=== PATIENT | male | born 1935 | race Caucasian/White ===

== ENCOUNTER → 2016-03-27 | Outpatient (CLI) | payer OTHER ==
[~2016-03-27] MED LIST: ACET-1256 PO; ACET-24 PO; ASPCH81X PO; ASPEC325 PO; ASPI400T11 PO; CETI10TA10 PO; CITA10TA8 PO; DICL1GEL12 TOP; DILT240C57 PO; FINA5TAB PO; GABA-113 PO; LISI20TA55 PO; LISINOPRIL/HCTZ PO; LUTE6CAP9 PO; MULT-506 PO; OMEG10007 PO; TAMS0.4C59 PO; ULT50X PO
== END | disposition home or self-care (01) ==
LOC: C.RDSM 08:00
PROVIDERS: ATTEND Physical Medicine & Rehabilitation Sports Medicine
DX: M25.512 Pain in left shoulder (principal)

== ENCOUNTER → 2016-04-06 | Outpatient (CLI) | payer OTHER ==
--- NOTE | 2016-04-06 09:28 | DIAGNOSTIC IMAGING REPORT ---
MRI LUMBAR SPINE W/O CONTRAST CLINICAL HISTORY: Spinal stenosis. Persistent low back pain. TECHNIQUE: Sagittal and axial T1, T2 and STIR images were obtained. COMPARISON STUDY: May 27, 2015 OBSERVATIONS: There is mild heterogeneity in the marrow signal, finding consistent with age-related marrow conversion and degenerative endplate signal changes. L1-2: There is a mild circumferential disc bulge. There is no evidence of significant spinal or foraminal stenosis. L2-3: There is a mild circumferential disc bulge present. There is left-sided foraminal narrowing. There is no significant spinal stenosis. There is left-sided facet joint arthropathy. L3-4: There is a circumferential disc bulge present, as well as a left lateral disc protrusion. There is left-sided foraminal stenosis. There is facet joint arthropathy. There is no significant spinal stenosis. L4-5: There is a circumferential disc bulge present. There is bilateral foraminal stenosis. There are postlaminectomy changes. There is facet joint arthropathy. There is no significant spinal stenosis L5-S1: There is cystic degeneration of the disc. There is advanced facet joint arthropathy. There are postlaminectomy changes. There is no significant spinal stenosis. There is bilateral foraminal narrowing. The conus medullaris and cauda equina appear normal. 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 IMPRESSION: 1. Multilevel spondylitic changes 2. Interval posterior laminectomies at the L4 and L5 levels 3. No evidence of significant spinal stenosis 4. Multilevel foraminal stenosis Electronically signed by: Jose Arellano M.D. 04/06/2016 9:27 AM Dictated Date/Time: 04/06/2016 9:20 AM
== END | disposition home or self-care (01) ==
LOC: C.MRIBC 08:17
PROVIDERS: ATTEND Orthopaedic Surgery
DX: M48.06 Spinal stenosis, lumbar region (principal); Z98.1 Arthrodesis status

== ENCOUNTER → 2016-06-24 | Day surgery (SDC) | payer OTHER ==
[2016-06-03 13:41] VITALS: Ht 180.3 cm; Wt 95.5 kg
[~2016-06-24] VITALS: Ht 180.3 cm; Wt 95.5 kg
[~2016-06-24] MED LIST changes: +BUPIVACAINE 0.25% 2.5MG/ML PF 10 ML VIAL INFIL ONE; +IOPAMIDOL INJ 61% 15 ML VIAL ONE; +LIDOCAINE HCL 1% MPF 5 ML VIAL ONE; +SODIUM CHLORIDE 0.9% INJ 10 ML VIAL ONE
--- NOTE | 2016-06-24 14:14 | History & Physical Bridge - SC ---
H&P Re-Evaluation Bridge Note: I have examined the patient, reviewed the History & Physical and in the interval since the performance of the History & Physical I have noted the following changes of clinical significance: No changes noted
[2016-06-24 14:39] VITALS: TEMP 36.6
--- NOTE | 2016-06-24 14:43 | Discharge Instructions ---
Discharge Instructions Date of Service June 24, 2016. Visit Reason for Visit: Lumbar Radiculopathy Discharge Discharge Diagnosis / Problem: right leg pain Discharge Goals Goal(s): Decrease discomfort, Improve function Medications Stopped Medications Name(s): asa stopped x 1 week. Activity Recommendations Activity Limitations: resume your previous activity Anesthesia . Post Anesthesia Instructions: If you have had General Anesthesia or IV Sedation: * Do not drive today. * Resume driving when surgeon permits. * Do not make important decisions or sign legal documents today. * Call surgeon for: 1. Temperature elevations greater than 101 degrees F. 2. Uncontrollable pain. 3. Excessive bleeding. 4. Persistent nausea and vomiting. 5. Medication intolerance (nausea, vomiting or rash). * For nausea and vomiting use only clear liquids such as: tea, soda, bouillon until nausea subsides, then gradually increase diet as tolerated. * If you have any concerns or questions, call your surgeon's office. If physician is unavailable and it is an emergency, call 911 or go to the nearest emergency room. . Diet Recommendations Recommended Home Diet: resume previous diet Procedures Procedures Performed: Right L4-5 Transforaminal Epidural Steroid Injection Pending Studies Studies pending at discharge: no Medical Emergencies . Who to Call and When: Medical Emergencies: If at any time you feel your situation is an emergency, please call 911 immediately. . Non-Emergent Contact Non-Emergency issues call your: Specialist . . "Provider Documentation" section prepared by Ruddy Pedroza. .
[2016-06-24 14:50] VITALS: BP 155/91; PULSE 73; O2SAT 95
--- NOTE | 2016-06-24 15:30 | OPERATIVE REPORT ---
DATE OF OPERATION: 06/24/2016 PREOPERATIVE DIAGNOSIS: History of right L4-L5 hemilaminectomy with persistent right L4 radiculopathy. POSTOPERATIVE DIAGNOSIS: Same. PROCEDURE: Right transforaminal epidural steroid injection under fluoroscopic guidance. SURGEON: Dr. Ruddy Pedroza. INDICATIONS: The patient is an 81-year-old white male who has persistent L4 radiculopathy on the right side despite surgery, presents today for a transforaminal nerve root selective nerve root block to provide him with relief. PHYSICAL EXAMINATION: GENERAL: Pleasant male seated comfortably in no apparent distress. MUSCULOSKELETAL EXAMINATION: He has a well-healed incision. He has no sciatic notch sensitivity. He has normal lower extremity strength and sensation. Negative seated straight leg raises. CONSENT: Verbal and written consent was reviewed with the patient. Risks and benefits were reviewed. Risks include but are not limited to abscess, hematoma, allergic reaction, dural puncture. Wishes to proceed. PROCEDURE: The patient was taken back to the special procedures room of the [facility] where he was maintained in a prone position. Backside was cleansed with Betadine x3 and a dry sterile dressing was applied. Fluoroscope was used to identify the L4-L5 region and then view was placed in an oblique view and the L4 pedicle was then targeted inferior to this with a 25 gauge 5" spinal needle. It was advanced in an oblique view and then moved into an AP view to move it towards the nerve and foramen. It was advanced until the patient and reproduced a painful sensation in the thigh area down the leg. It was retracted a few millimeters until he had no discomfort and then injected with Isovue 300 contrast which showed outline of the nerve root. He then underwent injection after negative aspiration of 40 mg of Depo-Medrol, 2 mL of bupivacaine 0.25% which reproduced a familiar transient radicular sensation down the thigh. DISPOSITION: 1. The patient is taken out into the discharge recovery area where he will be discharged home once discharge criteria have been met. 2. Follow up in the [facility] office in 2-4 weeks. I attest to the content of the Intraoperative Record and any orders documented therein. Any exceptio ns are noted below.
== END | disposition home or self-care (01) ==
LOC: X.SURG 13:45
PROVIDERS: ATTEND Physical Medicine & Rehabilitation
DX: M54.16 Radiculopathy, lumbar region (principal); N40.0 Benign prostatic hyperplasia without lower urinary tract symptoms; I10 Essential (primary) hypertension; M19.019 Primary osteoarthritis, unspecified shoulder; Z79.82 Long term (current) use of aspirin; Z87.891 Personal history of nicotine dependence

== ENCOUNTER → 2016-07-08 | Outpatient (CLI) | payer OTHER ==
[~2016-07-08] MED LIST changes: -BUPIVACAINE 0.25% 2.5MG/ML PF 10 ML VIAL INFIL ONE; -IOPAMIDOL INJ 61% 15 ML VIAL ONE; -LIDOCAINE HCL 1% MPF 5 ML VIAL ONE; -SODIUM CHLORIDE 0.9% INJ 10 ML VIAL ONE
--- NOTE | 2016-07-08 11:47 | DIAGNOSTIC IMAGING REPORT ---
CT OF THE RIGHT HIP CT DOSE: 815.36 mGy.cm HISTORY: Pain M25.551 Acute right hip [id number] Right TECHNIQUE: Multiaxial CT images of the right hip were performed and reformatted in the sagittal and coronal plane without the use of contrast. COMPARISON: None. FINDINGS: Severe degenerative change right hip. [id number] configuration superior aspect of the femoral head and lateral acetabulum. Degenerative subchondral cyst formation. Small joint effusion. Moderate synovial calcification. Calcific trochanteric bursitis. No evidence for acetabular protrusion. No evidence for fracture or dislocation. IMPRESSION: 1. Severe degenerative change. 2. Synovial calcification. 3. Mild calcific trochanteric bursitis. Electronically signed by: Luis Breen M.D. 07/08/2016 11:46 AM Dictated Date/Time: 07/08/2016 11:26 AM
== END | disposition home or self-care (01) ==
LOC: C.CTS 11:07
PROVIDERS: ATTEND Internal Medicine
DX: M25.551 Pain in right hip (principal); M67.851 Other specified disorders of synovium, right hip

== ENCOUNTER 2016-10-08 05:06 | Inpatient (IN) | payer OTHER ==
[2016-09-24 14:19] VITALS: BMI 31.0
--- NOTE | 2016-09-24 14:43 | PAT Medication Instructions ---
Service Date Sep 24, 2016. Current Home Medication List Aspirin (Aspirin Chewable), 81 MG PO QAM Aspirin-Caffeine (Anacin 400-32 mg), 2 TAB PO TID Cetirizine Hcl (Zyrtec), 10 MG PO QAM Citalopram Hydrobromide (Celexa), 20 MG PO QAM Diltiazem Hcl Coated Beads (Cardizem Cd), 240 MG PO QAM Finasteride (Proscar), 5 MG PO QAM Fish Oil (Zwolle-3), 1 CAP PO QAM Gabapentin (Neurontin), 300 MG PO TID Lutein (Cvs Lutein), 12 MG PO Q2D Multivitamin (Multivitamin), 1 TAB PO QAM Tamsulosin Hcl (Flomax), 0.4 MG PO QAM [Lisinopril/Hctz], 1 TAB PO QAM Medication Instructions For Your Scheduled Surgery Aspirin-Caffeine (Anacin 400-32 mg), 2 TAB PO TID (check with surgeon for instructions) - Hold the following medications starting 09/25/16: Fish Oil (Zwolle-3), 1 CAP PO QAM - Hold the following medications the morning of surgery: Lutein (Cvs Lutein), 12 MG PO Q2D Multivitamin (Multivitamin), 1 TAB PO QAM Tamsulosin Hcl (Flomax), 0.4 MG PO QAM [Lisinopril/Hctz], 1 TAB PO QAM Finasteride (Proscar), 5 MG PO QAM Cetirizine Hcl (Zyrtec), 10 MG PO QAM - Take the following medications the morning of surgery with a sip of water: Gabapentin (Neurontin), 300 MG PO TID Diltiazem Hcl Coated Beads (Cardizem Cd), 240 MG PO QAM Citalopram Hydrobromide (Celexa), 20 MG PO QAM Aspirin (Aspirin Chewable), 81 MG PO QAM (okay to continue per surgeon) - Take the following medications as scheduled the night before surgery: Gabapentin (Neurontin), 300 MG PO TID If you have any questions please call us at [phone] or [phone] or [phone]
--- NOTE | 2016-09-24 15:10 | DIAGNOSTIC IMAGING REPORT ---
CHEST 2 VIEWS ROUTINE HISTORY: 81 years-old Male preadmission exam. No acute chest complaints. COMPARISON: Chest CT 01/29/2006. TECHNIQUE: Frontal and lateral views of the chest FINDINGS: Cardiac silhouette is mildly enlarged. There is no pneumothorax, pleural effusion or focal airspace consolidation. There is minimal subsegmental left basilar atelectasis or scarring. No overt pulmonary edema. There is atherosclerosis of the aorta.] Technique limits are noted. Multilevel endplate spurring is seen throughout the thoracic spine. Approximately 30% anterior endplate compression of a mid thoracic segment, likely T7 which is age-indeterminate. IMPRESSION: 1. No acute cardiopulmonary process. 2. 30% anterior endplate compression deformity of a mid thoracic segment, likely T7 is age indeterminate, however appears new from chest CT dated 01/29/2006. The above report was generated using voice recognition software. It may contain grammatical, syntax or spelling errors. Electronically signed by: Osorio Barahona M.D. 09/24/2016 3:08 PM Dictated Date/Time: 09/24/2016 3:05 PM
[2016-09-24 15:27] LABS: BASO % 0.7 %; BASO ABS # 0.04 K/uL (0-0.2); COMPLETE YES; EOS % 6.4 %; HEMATOCRIT 40.3 % (42-52); IG% 0.5 %; LYMPH % 29.1 %; LYMPH ABS # 1.78 K/uL (1.2-3.4); MEAN CELL VOLUME 96.2 fL (80-100); MEAN CORPUSCULAR HEMOGLOBIN 33.9 pg (25-34); MEAN CORPUSCULAR HGB CONC 35.2 g/dl (32-36); MEAN PLATELET VOLUME 10.1 fL (7.4-10.4); MONO % 11.8 %; NEUT % 51.5 %; PLATELET COUNT 230 K/uL (130-400); RED BLOOD COUNT 4.19 M/uL (4.7-6.1); WHITE BLOOD COUNT 6.12 K/uL (4.8-10.8)
[2016-09-24 15:37] LABS: BLOOD UREA NITROGEN 18 mg/dl (7-18); BUN/CREATININE RATIO 18.6 (10-20); C-REACTIVE PROTEIN < 0.29 mg/dl (0-0.29); CALCIUM 8.5 mg/dl (8.5-10.1); CARBON DIOXIDE 29 mmol/L (21-32); CHLORIDE 100 mmol/L (98-107); CREATININE 0.97 mg/dl (0.60-1.40); GLUCOSE 121 mg/dl (70-99); POTASSIUM 3.6 mmol/L (3.5-5.1); SODIUM 135 mmol/L (136-145)
[2016-09-24 15:38] LABS: INR 0.9 (0.9-1.1); PARTIAL THROMBOPLASTIN RATIO 0.9
--- NOTE | 2016-09-28 23:17 | HISTORY & PHYSICAL EXAMINATION ---
DATE OF ADMISSION: 10/08/2016 CHIEF COMPLAINT: Right hip pain. HISTORY OF PRESENT ILLNESS: An 81-year-old gentleman, currently retired, who presents for surgical treatment of his right hip. He has a several-year history of increasing right hip pain and discomfort that has got significantly worse over the past 2 years. He has been through extensive conservative treatment by Dr. Austin of [facility]. He was initially treated conservatively and actually did see a spine surgeon down in the [place] area and had a laminectomy done. It helped him for a couple of months and that is about it. Despite this, he has continued to have persistent and progressive hip pain and discomfort. He describes buttock pain, groin pain, thigh pain. He has had some injections by Dr. Pedroza in his back area, which have not helped at all. Dr. Austin did an intra-articular hip injection, which helped him significantly for 4 days. Pain has returned and he would like to proceed. X-rays show advanced hip arthritis. PAST MEDICAL HISTORY: Hypertension. PAST SURGICAL HISTORY: Include: 1. Laminectomy. 2. Cholecystectomy. ALLERGIES: None. CURRENT MEDICINES: Include: 1. Tamsulosin once a day. 2. Zyrtec 10 mg. 3. Fish oil. 4. Aspirin 81 mg a day. 5. Multivitamin once a day. 6. Citalopram 20 mg. 7. Diltiazem 240 mg once a day. 8. Lisinopril/hydrochlorothiazide 10/12.5 once a day. 9. Lutein 6 mg a day. 10. Gabapentin 300 mg 3 times a day. 11. Finasteride 5 mg a day. SOCIAL HISTORY: He is an 81-year-old male. He is retired. He is . Dr. Michele is his medical doctor. FAMILY HISTORY: Noncontributory. REVIEW OF SYSTEMS: Negative for diabetes. Denies any chest pain or shortness of breath. No history of DVT or PE. No neurological or vascular problems. PHYSICAL EXAMINATION: GENERAL: Reveals a healthy pleasant elderly male. He looks younger than his stated age. HEENT: Benign. NECK: Supple. No lymphadenopathy. LUNGS: Clear to auscultation. HEART: Has a regular rate and rhythm. ABDOMEN: Soft, nontender, nondistended. EXTREMITIES: Grossly neurovascularly intact except as follows: Examination of the right hip reveals the patient walks with a significant limp. He is using a cane. He had a very stiff hip with internal rotation to -5, external rotation to 20 degrees. He has got pain and locking of his pelvis with hip motion. No knee effusion. Negative straight leg raise. X-RAYS: X-rays of the right hip were reviewed. It shows advanced right hip DJD. He has got cystic changes in the femoral head. He has got complete loss of the superior joint space. Not a lot of osteophytes. ASSESSMENT: An 81-year-old male, a little over a year out from a laminectomy, with advanced right hip degenerative joint disease. He has failed conservative treatment and would like to have his right hip replaced. PLAN: We will take him to the operating room and do a right total hip replacement. The risks and benefits of this procedure were explained to the patient including, but not limited to, DVT, PE, , infection, neurological injury, vascular injury, bleeding problem, pain, limited range of motion, stiffness, failure to relieve symptoms, incomplete relief of symptoms, need for further surgery in the future, fracture, leg length inequality, nerve palsy, dislocation, etc. The patient understands and desires to proceed. Informed consent was obtained. We did talk to him about holding his lisinopril the morning of surgery. He is planning to be discharged to home with home health using the [facility] home health program. EMILY
[~2016-10-08] VITALS: Ht 180.3 cm; Wt 101.2 kg
[2016-10-08] VITALS (13 sets, daily range): BP systolic 110–193; BP diastolic 69–90; PULSE 58–78; TEMP 35.9–37.4; O2SAT 91–99; Ht 180.3 cm; Wt 101.2 kg
[~2016-10-08 05:06] MED LIST changes: -ACET-1256 PO; -ACET-24 PO; -ASPEC325 PO; -DICL1GEL12 TOP; -LISI20TA55 PO; -ULT50X PO
[2016-10-08] MEDS ORDERED: ACET-1256 PO (05:42)
[2016-10-08] MEDS ORDERED: METOCLOPRAMIDE HCL 10 MG TAB PO SCH (06:00)
[2016-10-08] MEDS ORDERED: GABAPENTIN 300 MG CAP PO SCH (06:00)
[2016-10-08] MEDS ORDERED: ACETAMINOPHEN 500 MG TAB PO SCH (06:00)
[2016-10-08] MEDS ORDERED: FAMOTIDINE 20 MG TAB PO SCH (06:00)
[2016-10-08] MEDS ORDERED: LACTATED RINGER'S 1000ML 500 ML IV SCH (06:00)
[2016-10-08] MEDS ORDERED: LACTATED RINGER'S 1000ML 1,000 ML IV SCH ×2 (06:00)
[2016-10-08] MEDS ORDERED: CEFAZOLIN 2000 MG/60 ML D5W 60 ML IV SCH (06:00)
[2016-10-08] MEDS ORDERED: SCOPOLAMINE 1.5 MG TDSY TD SCH (06:00)
[2016-10-08] MEDS ORDERED: TRANEXAMIC ACID INJ 1,000 MG in SODIUM CHLORIDE 0.9% 100ML 100 ML IV SCH (06:00)
[2016-10-08] MEDS ORDERED: MIDAZOLAM HCL 1 MG/ML 2ML VIAL ONE ×3 (06:18→08:09)
[2016-10-08] MEDS ORDERED: PHENYLEPHRINE 100MCG/ML 5ML SYR ONE (06:18)
[2016-10-08] MEDS ORDERED: FENTANYL CITRATE INJ 50 MCG/1 ML 2 ML VIAL ONE (06:18)
[2016-10-08] MEDS ORDERED: EpHEDrine SULFATE 50MG/5ML SYR ONE (06:18)
[2016-10-08] MEDS ORDERED: PROPOFOL IV EMULSION 10 MG/ML 20 ML VIAL IV ONE ×2 (06:18→08:03)
[2016-10-08] MEDS ORDERED: MoRPHine SULFATE PF 1 MG/ML 10 ML AMP/VIAL ONE (06:18)
[2016-10-08] MEDS ORDERED: BUPIVACAINE 0.5 % 5 MG/1 ML PF 10ML VIAL ONE (06:20)
[2016-10-08] MEDS ORDERED: BUPIVACAINE/EPINEPHRINE 0.5% MPF 1:200,000 10 ML VIAL ONE ×2 (06:54→06:58)
[2016-10-08] MEDS ORDERED: BACITRACIN 50000 UNIT VIAL ONE (06:54)
[2016-10-08] MEDS ORDERED: EpHEDrine SULFATE INJ 50 MG/ML AMP IV PRN ×2 (07:45→10:30)
[2016-10-08] MEDS ORDERED: ONDANSETRON INJ 2 MG/ML 2 ML VIAL IV PRN ×2 (07:45→10:30)
[2016-10-08] MEDS ORDERED: NURSING VERBAL MED ORDER ONE ×2 (07:45→23:00)
[2016-10-08] MEDS ORDERED: ATROPINE SULFATE 0.1 MG/ML 5ML SYR IV PRN (07:45)
[2016-10-08] MEDS ORDERED: MULTIVITAMIN TAB PO SCH (09:00)
[2016-10-08] MEDS ORDERED: MAGNESIUM HYDROXIDE SUSP 30 ML UDC PO PRN (09:00)
[2016-10-08] MEDS ORDERED: BISACODYL 10 MG SUPP PR PRN (09:00)
[2016-10-08] MEDS ORDERED: TAMSULOSIN HCL 0.4 MG CAP PO PRN (09:00)
[2016-10-08] MEDS ORDERED: ALUMINUM/MAGNESIUM/SIMETH (MAALOX MAX) 30 ML UDC PO PRN (09:00)
[2016-10-08] MEDS ORDERED: LUTEIN 12 MG PO SCH (09:00)
[2016-10-08] MEDS ORDERED: SILVER SULFADIAZINE 1% CR 50 GM JAR EXT PRN (09:00)
--- NOTE | 2016-10-08 09:00 | [facility] Post Operative Brief Note ---
Immediate Operative Summary Operative Date Oct 08, 2016. Pre-Operative Diagnosis Right Hip, Degenerative Joint Disease Post-Operative Diagnosis Same as preoperative Procedure(s) Performed Right Total Hip Arthroplasty, Uncemented, with Orlando Dupont Surgeon Dr. Constantin Castanon Home Coordinator Surgeon(s) Edgardo Sawant PA-C Estimated Blood Loss 300ml Findings Right Hip DJD Fluids (cc crystalloids) 1600 cc Specimens A.) Right Femoral Head Drains None Anesthesia Spinal Complication(s) Calcar Fracture treated with Orlando-Minor Cables. Disposition Recovery Room / PACU
--- NOTE | 2016-10-08 09:31 | DIAGNOSTIC IMAGING REPORT ---
RIGHT PELVIS/UNILATERAL HIP 1 VIEW HISTORY: 81 years-old Male IN PACU - A/P PELVIS and LATERAL HIP INCLUDING ALL OF IMPLANT Right COMPARISON: Pelvis and right hip radiographs 09/17/2016 TECHNIQUE: AP view of the pelvis with frog-leg view of the right hip FINDINGS: The superior aspect of the pelvis is excluded from the [id number]. The imaged bony pelvis appears intact. Moderate degenerative changes involve the left femoral acetabular joint. There has been interval right total hip arthroplasty without periprosthetic fracture or malalignment. Expected postsurgical swelling and deep tissue air is seen lateral to the right proximal femur with partially imaged skin kinjal. No retained radiopaque foreign body. Vascular calcifications are noted. IMPRESSION: Status post right total hip arthroplasty without complication identified. No acute bony abnormality. The above report was generated using voice recognition software. It may contain grammatical, syntax or spelling errors. Electronically signed by: Osorio Barahona M.D. 10/08/2016 9:30 AM Dictated Date/Time: 10/08/2016 9:28 AM
--- NOTE | 2016-10-08 09:35 | OPERATIVE REPORT ---
DATE OF OPERATION: 10/08/2016 SURGEON: Dr. Cnostantin Castanon. TOBACCO PRIMER MACHINE OPERATOR: CAMERON Jose PREOPERATIVE DIAGNOSIS: Right hip degenerative joint disease. POSTOPERATIVE DIAGNOSIS: Same. PROCEDURE PERFORMED: Right uncemented total hip arthroplasty. COMPLICATIONS: Calcar fracture treated prophylactic cabling both above and below the lesser trochanter. ESTIMATED BLOOD LOSS: 300 mL. FLUID REPLACEMENT: 1600 mL crystalloid fluid replacement. ANESTHESIA: Spinal. DRAINS: None. SPECIMENS: Right femoral head sent for pathology. OPERATIVE INDICATIONS: The patient is an 81-year-old male with a several year history of increasing right hip pain and discomfort. He had actually gone through some back surgery, which helped him minimally. Over time, x-rays show progressive hip arthritis. The patient is debilitated by his disease and elected to proceed with operative treatment. He has been through all conservative measures. OPERATIVE FINDINGS: Operative findings revealed advanced right hip DJD. He had large hip joint effusion. Grade 4 [id number] disease of the femoral head and acetabulum with extensive osteophytes around the femoral head and acetabulum. He had significant synovitis. OPERATIVE IMPLANTS: Operative implants consisted of: 1. A Biomet G7 size 58-mm acetabular shell. 2. An apex hole eliminator. 3. A 6.5 cancellous acetabular screws, 1 at 35 mm length and 1 at 25 mm in length. 4. A highly cross-linked polyethylene liner with a 58 mm outer diameter and 40 mm inner diameter with a high wall placed inferior and posterior. 5. A DePuy size 15 large stature AML femoral stem. 6. A +5/40 mm metal articular ball. 7. A 2.0 [facility] cables x2. OPERATIVE PROCEDURE: The patient was taken to the operating room, identified and placed on the operating table in the supine position. All contact areas were appropriately padded. IV antibiotics were provided by anesthesia team. A spinal anesthetic had been implemented in the holding area. Henderson catheter was placed in sterile fashion. The patient was then placed in the left lateral decubitus position. An axillary roll was placed. Stulberg hip positioner was used for positioning. The right hip and leg were then prepped and draped in the usual sterile fashion. A posterolateral approach to the right hip was then performed through a curvilinear incision centered over the greater trochanter. Sharp dissection was carried out through the subcutaneous tissue down to the level of the IT band and gluteal fascia. The IT band and gluteal fascia were then incised longitudinally in line with skin incision. The underlying greater trochanteric bursa was excised. The piriformis and external rotators were tagged and taken off the posterior aspect of the femur. Great care was taken throughout the procedure to protect the sciatic nerve at all times. Posterior capsulotomy was then performed leaving a large flap for later repair. Hip was internally rotated and dislocated. Femoral neck osteotomy cut was made with the final cut 15 mm above the lesser trochanter. Femoral head was removed and sent for pathology. The femur was retracted anteriorly. Attention was then drawn to the acetabulum. The acetabulum labrum was excised. The pulvinar fat was excised. Sequential reaming of the acetabulum was then performed beginning with a size 51 and progressing up to 57. A 58-mm Biomet G7 acetabular shell was then placed in about 40 degrees of lateral opening and 20 degrees of anteversion. It was fixed with two 6.5 cancellous acetabular screws. A trial liner was placed. Some osteophytes were taken off anteriorly. Attention was then drawn to the femur. The proximal femur was entered with cookie cutter followed by canal finder and lateralizing reamer. Sequential reaming of the femur was then performed beginning with a size 10 and progressing up to 14.5 and we got good chatter at 14.5. I then broached beginning with a 12 small and progressing up to 15 small. A 15 small countersunk without much difficulty, so we elected to place a large. Upon placing the large broach, there was a small calcar crack, which was identified immediately. In light of this, I elected to place 2 Dall-Miles cables. I placed a Dall-Miles cable proximally around the calcar fracture just above the lesser trochanter and then a second 2.0 Dall-Miles cable just inferior to the trochanter to prevent any fracture propagation. We then reinserted the implant. We trialed the hip. I did leave the implant slightly proud to avoid propagation of fracture. We then trialed the hip and +5 articular ball provided full stability in full extension, external rotation, flexion to 90 degrees, and internal rotation to about 40 degrees. I elected to therefore place a larger head, which is a 40 head with a high wall inferior and posterior to maximize stability in flexion. This did improve stability about an extra 20 degrees. We elected to use these implants. All trial implants were removed. An apex hole eliminator was placed. A highly cross-linked polyethylene liner with a shearer placed inferior and posterior was placed. A 15 large stature AML femoral stem was impacted in position. I did ream down the canal with a 15 reamer as it was fairly tight and based on the calcar fracture, I did not want to stress the bone too much. I then placed a +5/40 mm metal articular ball. Hip was located and once again found to be stable. Attention was then drawn toward closing. The wound was irrigated with copious amounts of pulsatile lavage solution. I did inject locally with 60 mL of 0.5% Marcaine with epinephrine. The posterior capsule and external rotators were repaired through drill holes in the posterior trochanter with #2 Ti-Cron suture. The IT band and gluteal fascia were then closed with #1 PDS suture in running fashion. The subcutaneous tissues were then closed with 2 layers with the deep layer #1 Vicryl suture and the subcutaneous tissues with 2-0 Dexon suture in a buried interrupted fashion. The skin was closed with skin kinjal. Leg was then cleaned and dried and a sterile dressing of Xeroform, 4 x 4, sterile ABD pad and foam tape was applied. The patient was then transferred to the recovery room in stable condition. The patient tolerated the procedure well and there were no additional complications. I attest to the content of the Intraoperative Record and any orders documented therein. Any exception s are noted below.
--- NOTE | 2016-10-08 09:46 | Anesthesiology Progress Note ---
Anesthesia Post Op Note Date & Time Oct 08, 2016 at 09:46 Vital Signs Pain Intensity: 0 Vital Signs Past 12 Hours Date Time Temp Pulse Resp B/P (MAP) Pulse Ox O2 Delivery O2 Flow Rate FiO2 10/08/16 09:35 36.2 10/08/16 09:30 152/70 10/08/16 09:25 36.2 59 16 172/70 95 Nasal Cannula 2 10/08/16 09:20 158/67 10/08/16 09:15 61 16 165/93 94 Nasal Cannula 2 10/08/16 09:05 63 16 151/87 96 Nasal Cannula 2 10/08/16 08:59 36.0 74 16 143/66 93 Nasal Cannula 2 10/08/16 05:44 36.9 66 18 193/85 94 Room Air Notes Mental Status: alert / awake / arousable, participated in evaluation Pt Amnestic to Procedure: Yes Nausea / Vomiting: adequately controlled Pain: adequately controlled Airway Patency, RR, SpO2: stable & adequate BP & HR: stable & adequate Hydration State: stable & adequate Neuraxial Anesthesia: was administered, sensory block is resolving Anesthetic Complications: no major complications apparent
[2016-10-08] MEDS ORDERED: SODIUM CHLORIDE 0.9% 1000ML 1,000 ML IV PRN (10:17)
[2016-10-08] MEDS ORDERED: NALOXONE HCL INJ 0.08 MG in SYRINGE 1.8 ML IV PRN (10:17)
[2016-10-08] MEDS ORDERED: LACTATED RINGER'S 1000ML 500 ML IV PRN (10:17)
[2016-10-08] MEDS ORDERED: NALOXONE HCL INJ 1 MG in SODIUM CHLORIDE 0.9% 1000ML 1,000 ML IV PRN (10:17)
[2016-10-08] MEDS ORDERED: NALBUPHINE HCL INJ 10 MG/ML AMP IV PRN (10:30)
[2016-10-08] MEDS ORDERED: DiphenhydrAMINE HCL 50 MG/ML VIAL IV PRN (10:30)
[2016-10-08] MEDS ORDERED: NO NARCOTICS OR SEDATIVES SCH (10:30)
[2016-10-08] MEDS ORDERED: NALOXONE HCL 0.4 MG/1 ML VIAL/CARP IV PRN (10:30)
[2016-10-08] MEDS ORDERED: MoRPHine SULFATE 2 MG/ML CARP IV PRN (10:30)
[2016-10-08] MEDS ORDERED: MoRPHine SULFATE PF 1 MG/ML 10 ML AMP/VIAL EPI PRN (10:30)
[2016-10-08] MEDS ORDERED: LISI20TA55 PO (11:14)
[2016-10-08] MEDS: CITALOPRAM 20 MG TAB PO SCH (12:43)
[2016-10-08] MEDS: DILTIAZEM HCL 240 MG CAPCR PO SCH (12:43)
[2016-10-08] MEDS: GABAPENTIN 300 MG CAP PO SCH ×2 (12:43→21:33)
[2016-10-08] MEDS: TAMSULOSIN HCL 0.4 MG CAP PO SCH (12:44)
[2016-10-08] MEDS: FERROUS GLUCONATE 324 MG TAB PO SCH ×2 (12:44→18:00)
[2016-10-08] MEDS: LISINOPRIL/HCTZ 10/12.5MG TAB PO SCH (12:44)
[2016-10-08] MEDS: DOCUSATE SODIUM 100 MG CAP PO SCH ×2 (12:44→21:34)
[2016-10-08] MEDS: PANTOprazole SOD 40 MG TAB PO SCH (12:44)
[2016-10-08] MEDS: FINASTERIDE 5 MG TAB PO SCH (12:44)
[2016-10-08] MEDS: MULTIVITAMIN TAB PO SCH (12:44)
[2016-10-08] MEDS: D5W AND 1/2NSS + 20MEQ KCL 1,000 ML IV SCH ×2 (12:45→21:32)
[2016-10-08] MEDS: ACETAMINOPHEN 500 MG TAB PO SCH ×2 (12:46→21:34)
[2016-10-08] MEDS ORDERED: TRANEXAMIC ACID INJ 1,000 MG in SODIUM CHLORIDE 0.9% 100ML 100 ML IV ONE (15:00)
[2016-10-08] MEDS ORDERED: CHECK SCOPOLAMINE PATCH PLACEMENT SCH (16:00)
[2016-10-08] MEDS: CEFAZOLIN IV 2,000 MG in DEXTROSE 5% 50ML 50 ML IV SCH ×2 (16:31→23:50)
--- NOTE | 2016-10-08 19:55 | PROGRESS NOTE ---
DATE: 10/08/2016 SUBJECTIVE: An 81-year-old gentleman postop from a right total hip replacement. He is doing well. Not having any significant pain yet. No chest pain or shortness of breath. Not feeling dizzy or lightheaded. OBJECTIVE: VITAL SIGNS: Temperature is 36.8. Vital signs stable. GENERAL: Reveals a pleasant elderly male. He is sitting up in bed and talking to his . He looks comfortable. LUNGS: Clear to auscultation. HEART: Has a regular rate and rhythm. ABDOMEN: Soft, nontender, nondistended. EXTREMITIES: Grossly neurovascularly intact except as follows: Examination of the right leg reveals the leg lengths to be equal. Hip is located. He can dorsiflex and plantarflex his foot appropriately. He is neurologically intact. Hip is located. X-RAYS: X-rays of the right hip from recovery room reviewed. It shows right uncemented total hip arthroplasty. Components are in good position. No signs of problems. There is no fracture visualized. ASSESSMENT: An 81-year-old male postop from a right total hip replacement complicated by a calcar fracture. I cerclaged his femur to prevent propagation. Everything looks good. PLAN: 1. DVT prophylaxis including thigh-high TEDs, SCDs, and aspirin twice a day. 2. PT/OT. He can weightbear as tolerated. We are going to let him weightbear as tolerated as I think this is a stable construct. 3. IV antibiotics x24 hours. 4. Pain control, doing well with current pain regimen. 5. Disposition: He is planning to be discharged to home with some home health once adequately recovered.
[2016-10-08] MEDS: ASPIRIN 325 MG ECTAB PO SCH (21:33)
[2016-10-08] MEDS: SENNA 8.6 MG TAB PO SCH (21:34)
[2016-10-08] MEDS ORDERED: LACTATED RINGER'S 1000ML 250 ML IV STA (23:00)
[2016-10-09] VITALS (16 sets, daily range): BP systolic 144–176; BP diastolic 68–81; PULSE 71–77; TEMP 36.6–37.8; O2SAT 92–97
[2016-10-09] MEDS: ACETAMINOPHEN 500 MG TAB PO SCH ×3 (05:34→21:52)
[2016-10-09 06:14] LABS: BASO % 0.2 %; BASO ABS # 0.02 K/uL (0-0.2); COMPLETE YES; HEMATOCRIT 34.8 % (42-52); IG% 0.5 %; LYMPH % 21.9 %; LYMPH ABS # 1.88 K/uL (1.2-3.4); MEAN CELL VOLUME 100.9 fL (80-100); MEAN CORPUSCULAR HEMOGLOBIN 35.1 pg (25-34); MEAN CORPUSCULAR HGB CONC 34.8 g/dl (32-36); MEAN PLATELET VOLUME 10.1 fL (7.4-10.4); MONO % 13.3 %; NEUT % 62.1 %; PLATELET COUNT 187 K/uL (130-400); RED BLOOD COUNT 3.45 M/uL (4.7-6.1); WHITE BLOOD COUNT 8.59 K/uL (4.8-10.8)
[2016-10-09 06:40] LABS: BUN/CREATININE RATIO 19.7 (10-20); CALCIUM 7.9 mg/dl (8.5-10.1); CREATININE 1.1 mg/dl (0.60-1.40); POTASSIUM 3.9 mmol/L (3.5-5.1)
[2016-10-09] MEDS ORDERED: DC INTRASPINAL MORPHINE SCH (07:00)
[2016-10-09] MEDS ORDERED: ONDANSETRON INJ 2 MG/ML 2 ML VIAL IV PRN (07:01)
[2016-10-09] MEDS ORDERED: ZOLPIDEM TARTRATE 5 MG TAB PO PRN (07:01)
[2016-10-09] MEDS ORDERED: METOCLOPRAMIDE HCL INJ 5 MG/ML 2 ML VIAL IV PRN (07:01)
--- NOTE | 2016-10-09 07:39 | PROGRESS NOTE ---
DATE: 10/09/2016 DATE: 10/09/2016 SUBJECTIVE: An 81-year-old gentleman postop day 1 from right total hip replacement. He is doing pretty well. Pain is controlled. Denies any chest pain or shortness of breath. Not feeling dizzy or lightheaded. OBJECTIVE: VITAL SIGNS: Temperature 37.6. Vital signs stable. PHYSICAL EXAMINATION: GENERAL: Reveals a pleasant elderly male. He is sitting up in bed. He is awake, alert and oriented. LUNGS: Clear to auscultation. HEART: Regular rate and rhythm. ABDOMEN: Soft, nontender, nondistended. EXTREMITY EXAMINATION: Grossly neurovascularly intact except as follows: Examination of the right leg reveals leg lengths to be equal. Hip is located. Dressing is clean, dry and intact. Thigh is soft and supple. Not much swelling. He is neurologically intact. LABORATORY DATA: Hemoglobin 12.1. Hematocrit 34.8. Electrolytes are stable. ASSESSMENT: An 81-year-old gentleman postop day 1 from right total hip replacement complicated by calcar fracture. He is doing well. Pain is controlled. We have cerclaged his femur and I do not think we need to change his postoperative rehab. PLAN: 1. DVT prophylaxis including thigh-high TEDs, SCDs, and aspirin twice a day. 2. PT/OT. Weight bear as tolerated. Right total hip protocol. 3. Pain control. Doing pretty well with current pain regimen. 4. Disposition. He is hoping to be discharged home. He will have some home health. We will see how therapy goes. He might really need a rehab stay based on his age and his assistance at home.
[2016-10-09] MEDS: D5W AND 1/2NSS + 20MEQ KCL 1,000 ML IV SCH (08:00)
[2016-10-09] MEDS: KETOROLAC TROMETHAMINE 15 MG/ML VIAL IV. SCH ×2 (08:17→14:31)
--- NOTE | 2016-10-09 08:19 | Anesthesiology Progress Note ---
Anesthesia Post Op Note Date & Time Oct 09, 2016 at 08:19 Vital Signs Pain Intensity: 3.0 Vital Signs Past 12 Hours Date Time Temp Pulse Resp B/P (MAP) Pulse Ox O2 Delivery O2 Flow Rate FiO2 10/09/16 07:22 37.2 71 16 144/68 (93) 95 Nasal Cannula 2.0 10/09/16 07:00 18 95 10/09/16 06:10 16 94 10/09/16 05:00 18 97 10/09/16 04:00 18 94 10/09/16 03:42 37.6 73 18 153/73 (99) 97 Nasal Cannula 2.0 10/09/16 03:12 16 94 10/09/16 02:00 16 94 10/09/16 01:00 16 93 10/09/16 00:00 18 96 10/08/16 23:55 Nasal Cannula 2.0 10/08/16 23:55 16 96 10/08/16 23:05 37.4 75 18 122/70 (87) 94 Room Air Notes Mental Status: alert / awake / arousable, participated in evaluation Pt Amnestic to Procedure: Yes Nausea / Vomiting: adequately controlled Pain: adequately controlled Airway Patency, RR, SpO2: stable & adequate BP & HR: stable & adequate Hydration State: stable & adequate Neuraxial Anesthesia: sensory block resolved Anesthetic Complications: no major complications apparent
[2016-10-09] MEDS: DOCUSATE SODIUM 100 MG CAP PO SCH ×2 (09:44→21:51)
[2016-10-09] MEDS: DILTIAZEM HCL 240 MG CAPCR PO SCH (09:44)
[2016-10-09] MEDS: TAMSULOSIN HCL 0.4 MG CAP PO SCH (09:45)
[2016-10-09] MEDS: FERROUS GLUCONATE 324 MG TAB PO SCH ×3 (09:45→18:20)
[2016-10-09] MEDS: GABAPENTIN 300 MG CAP PO SCH ×3 (09:45→21:51)
[2016-10-09] MEDS: PANTOprazole SOD 40 MG TAB PO SCH (09:45)
[2016-10-09] MEDS: CITALOPRAM 20 MG TAB PO SCH (09:46)
[2016-10-09] MEDS: FINASTERIDE 5 MG TAB PO SCH (09:46)
[2016-10-09] MEDS: CETIRIZINE HCL 10 MG TAB PO SCH (09:46)
[2016-10-09] MEDS: MULTIVITAMIN TAB PO SCH (09:46)
[2016-10-09] MEDS: LISINOPRIL/HCTZ 10/12.5MG TAB PO SCH (09:46)
[2016-10-09] MEDS: ASPIRIN 325 MG ECTAB PO SCH ×2 (09:46→21:51)
[2016-10-09] MEDS: TRAMADOL HCL 50 MG TAB PO PRN ×2 (10:01→19:36)
[2016-10-09] MEDS ORDERED: NURSING VERBAL MED ORDER ONE (15:00)
[2016-10-09] MEDS ORDERED: ASPEC325 PO (21:47)
[2016-10-09] MEDS ORDERED: ULT50X PO (21:47)
[2016-10-09] MEDS ORDERED: ACET-24 PO (21:47)
--- NOTE | 2016-10-09 21:50 | Discharge Instructions ---
Discharge Instructions Date of Service Oct 09, 2016. Admission Reason for Admission: Right Hip Degenerative Joint Disease Discharge Discharge Diagnosis / Problem: Right Hip Replacement Discharge Goals Goal(s): Decrease discomfort, Improve function, Increase independence, Improve disease control Activity Recommendations Activity Limitations: per Instructions/Follow-up section (Total Hip Precautions ) Weightbearing Status: Right weightbearing . Instructions / Follow-Up Instructions / Follow-Up ACTIVITY RECOMMENDATIONS: Physical Therapy: * Aggressive physical therapy is not usually needed. You will learn to take care of yourself safely and walk. * Follow the "Hip Precautions Instructions." * In some cases, the licensed social worker at the hospital will arrange to have a therapist come to your house for the first couple of weeks to help you learn these skills. * You need to practice on your own or with the help of a family member as needed. * When you learn these skills, most of the therapy can be done on your own. Home Exercise: * You were shown a series of exercises in the hospital. Do these exercises three to four times each day including the exercises you were shown in physical therapy. Walking: * Get up and walk several times each day. For the first four weeks, try not to stand or walk for more than one hour at a time. If you do stand or walk for more than one hour, you will not hurt anything, but your leg will likely swell. * As you feel comfortable, you may change from the walker or crutches to a cane and then to independent walking. MEDICATIONS: New Medicine: * You will likely be taking one or more of these medicines: 1. Tramadol - Take, as directed, when you need it, every four to six hours to control your pain. 2. Aspirin - Thins your blood to lessen the chance of forming a blood clot. * The most common side effects of pain medicine and iron are nausea and constipation. If nausea or constipation is too much of a problem or if you have any questions about your new medicines or doses, call [facility] at [phone]. We will try to help you manage these issues. VERY IMPORTANT TO READ AND REVIEW" Pain: * The immediate post-operative period after hip replacement surgery is often quite painful. * You are given a prescription for pain medicine. You should take it, as directed, when you need it, especially before physical therapy and before going to bed. Pain that interferes with sleep is very common and can last several months. * You will likely need pain medicine for the first two to four weeks. It will not stop all of the pain. The pain will lessen and as you feel better, you may change to milder pain medicine such as Tylenol. * The most common side effects of pain medicine are nausea and constipation, so don't take more than you need. SPECIAL CARE INSTRUCTIONS: TEDs/Elastic Stockings: * The white elastic stockings help limit swelling and prevent blood clots from forming in your legs. The more you wear them, the more they work. * Wear them for six weeks. Prevention of Infection: * Take antibiotics one hour before any dental cleaning, dental work, urological procedure, gastrointestinal procedure or any invasive surgery in order to prevent your new joint from getting infected. * You may get the antibiotics from the doctor performing the procedure or you may call our office at before and we will call in a prescription to the pharmacy of your choice. Things to Watch For: * Drainage from the incision site that occurs more than one week after your surgery. * Severely increased leg pain or swelling. * Increased redness at the incision site. * Fever above 102 degrees Fahrenheit. * Unusual chest pain or shortness of breath. * Unusual pain or burning with urination. Call [facility] at with any of the above problems or if you have any questions about your medicines or recovery. FOLLOW UP VISIT: Make an appointment to see your doctor for approximately two weeks after surgery for a progress check and staple removal by calling the office at . Current Hospital Diet Patient's current hospital diet: Regular Diet Discharge Diet Recommended Diet: Regular Diet Procedures Procedures Performed: Right Total Hip Arthroplasty, Uncemented, with Dall Miles Cabling Pending Studies Studies pending at discharge: no Medical Emergencies . Who to Call and When: Medical Emergencies: If at any time you feel your situation is an emergency, please call [phone] immediately. . Non-Emergent Contact Non-Emergency issues call your: Surgeon . "Provider Documentation" section prepared by Constantin Castanon. . VTE Core Measure Inpt VTE Proph given/why not?: Other Anticoagulation, T.E.D. Stockings, SCD's
[2016-10-09] MEDS: SENNA 8.6 MG TAB PO SCH (21:51)
[2016-10-10] MEDS: ACETAMINOPHEN 500 MG TAB PO SCH ×2 (05:37→13:33)
[2016-10-10 06:31] VITALS: BP 171/75; PULSE 75; TEMP 36.9; O2SAT 96
[2016-10-10] MEDS: FINASTERIDE 5 MG TAB PO SCH (07:29)
[2016-10-10] MEDS: DILTIAZEM HCL 240 MG CAPCR PO SCH (07:29)
[2016-10-10] MEDS: FERROUS GLUCONATE 324 MG TAB PO SCH ×2 (07:29→12:41)
[2016-10-10] MEDS: GABAPENTIN 300 MG CAP PO SCH ×2 (07:29→13:32)
[2016-10-10] MEDS: LISINOPRIL/HCTZ 10/12.5MG TAB PO SCH (07:30)
[2016-10-10] MEDS: PANTOprazole SOD 40 MG TAB PO SCH (07:30)
[2016-10-10] MEDS: DOCUSATE SODIUM 100 MG CAP PO SCH (07:30)
[2016-10-10] MEDS: TAMSULOSIN HCL 0.4 MG CAP PO SCH (07:30)
[2016-10-10] MEDS: CITALOPRAM 20 MG TAB PO SCH (07:30)
[2016-10-10] MEDS: ASPIRIN 325 MG ECTAB PO SCH (07:30)
[2016-10-10] MEDS: MULTIVITAMIN TAB PO SCH (07:30)
[2016-10-10] MEDS: CETIRIZINE HCL 10 MG TAB PO SCH (07:30)
[2016-10-10] MEDS: TRAMADOL HCL 50 MG TAB PO PRN ×2 (07:34→12:42)
[2016-10-10 08:30] VITALS: BP 152/70
--- NOTE | 2016-10-10 08:38 | PROGRESS NOTE ---
DATE: 10/10/2016 SUBJECTIVE: An 81-year-old gentleman, postop day 2 from a right total hip replacement complicated by a calcar fracture. He is doing pretty well. Pain is controlled. Therapy went pretty well. He denies any chest pain or shortness of breath. Not feeling dizzy or lightheaded. OBJECTIVE: VITAL SIGNS: Temperature 36.9. Vital signs stable. GENERAL: Reveals a healthy pleasant elderly male. He is lying in bed, looks pretty comfortable. Talking to his . LUNGS: Clear to auscultation. HEART: Has a regular rate and rhythm. ABDOMEN: Soft, nontender, nondistended. EXTREMITIES: Grossly neurovascularly intact except as follows: Examination of the right hip and leg reveals the dressing to be clean, dry and intact. There is some gdrz-ro-chmylnwy swelling in his thigh area. His hip is located. He can dorsiflex and plantarflex his foot appropriately. He is neurologically intact. ASSESSMENT: An 81-year-old gentleman, postoperative day 2 from right total hip replacement complicated by calcar fracture. This was treated with cerclage cabling and should be stable. Therapy has gone reasonably well. PLAN: 1. DVT prophylaxis include thigh-high TEDs, SCDs, and aspirin twice a day. 2. PT/OT. Weightbearing as tolerated. Right total hip protocol. We are going to let him weightbear as tolerated. 3. Pain control, doing pretty well with current pain regimen. 4. Disposition: Plan to discharge to home with some home health.
[2016-10-10 09:06] VITALS: BP 126/66
[2016-10-10 11:41] VITALS: BP 126/66; PULSE 75; TEMP 36.9; O2SAT 96
--- NOTE | 2016-10-13 16:01 | DISCHARGE SUMMARY ---
ADMITTING PHYSICIAN AND SURGEON: Dr. Castanon. ADMITTING DIAGNOSIS: Right hip degenerative joint disease. SURGERY PERFORMED: Right total hip arthroplasty. SECONDARY DIAGNOSIS: Hypertension. CONSULTS: None obtained. HISTORY AND PHYSICAL EXAMINATION: Well documented in patient's chart. HOSPITAL COURSE: The patient admitted on 10/08/2016 underwent total hip arthroplasty. He tolerated the procedure well. He did have a calcar fracture intraoperative which was treated prophylactically with cabling. He was transferred to the PACU postoperatively and later to the orthopedic floor for further care. He was given Ancef for antibiotic prophylaxis, PORSHA stockings, SCDs and aspirin for DVT prophylaxis. Her hemoglobin, hematocrit and vital signs were monitored during his hospital stay and remained stable. He did not require any blood transfusions. There were no complications. By postoperative day 2, he was tolerating a general diet, pain was controlled with oral pain medicine. He was participating in physical therapy and had no signs or symptoms of deep vein thrombosis. On postoperative day 2, he was discharged home, set up with home health services, given printed discharge instructions including new prescriptions for Extra Strength Tylenol, aspirin 325 mg b.i.d., tramadol. Continue his home medications with the exception of his home dose of Tylenol and aspirin which were changed. Continue physical therapy, weightbearing as tolerated. PORSHA stockings, total hip precautions. Follow up with Dr. Castanon in 10-12 days or sooner if there are any problems or concerns.
== END 2016-10-10 14:15 | disposition home health service (06) | DRG 470 ==
LOC: C.ACU 05:06 → C.3E 06:40 → ENRESERV 09:16
PROVIDERS: ADMIT Orthopaedic Surgery Sports Medicine; ATTEND Orthopaedic Surgery Sports Medicine
PROC: 0QS604Z Reposition Right Upper Femur with Internal Fixation Device, Open Approach (ICD-10-PCS; principal; 2016-10-08 07:15)
PROC: 0SR90JA Replacement of Right Hip Joint with Synthetic Substitute, Uncemented, Open Approach (ICD-10-PCS; principal; 2016-10-08 07:15)
DX: M16.11 Unilateral primary osteoarthritis, right hip (principal); M96.661 Fracture of femur following insertion of orthopedic implant, joint prosthesis, or bone plate, right leg; Z79.82 Long term (current) use of aspirin; Z79.899 Other long term (current) drug therapy; I10 Essential (primary) hypertension

== ENCOUNTER → 2017-01-19 | Outpatient (CLI) | payer OTHER ==
[~2017-01-19] MED LIST changes: +ACET-24 PO; -ASPCH81X PO; +ASPEC325 PO; +LISI20TA55 PO; -LISINOPRIL/HCTZ PO; +ULT50X PO
[2017-01-19 11:02] LABS: BASO % 0.6 %; BASO ABS # 0.04 K/uL (0-0.2); COMPLETE YES; EOS % 7.5 %; HEMATOCRIT 44.9 % (42-52); IG% 0.4 %; LYMPH ABS # 2.37 K/uL (1.2-3.4); MEAN CELL VOLUME 96.1 fL (80-100); MEAN CORPUSCULAR HEMOGLOBIN 33.6 pg (25-34); MONO % 11.2 %; NEUT % 45.3 %; PLATELET COUNT 234 K/uL (130-400); RED BLOOD COUNT 4.67 M/uL (4.7-6.1); WHITE BLOOD COUNT 6.78 K/uL (4.8-10.8)
[2017-01-19 11:18] LABS: ALT/SGPT 19 U/L (12-78); BLOOD UREA NITROGEN 16 mg/dl (7-18); BUN/CREATININE RATIO 19.2 (10-20); CALCIUM 8.7 mg/dl (8.5-10.1); CARBON DIOXIDE 27 mmol/L (21-32); CHLORIDE 102 mmol/L (98-107); CHOLESTEROL 179 mg/dl (0-200); CREATININE 0.83 mg/dl (0.60-1.40); GLUCOSE 108 mg/dl (70-99); SODIUM 137 mmol/L (136-145); TRIGLYCERIDES 67 mg/dl (0-150); VERY LOW DENSITY LIPOPROT CALC 13 mg/dl
[2017-01-19 11:28] LABS: ALKALINE PHOSPHATASE 78 U/L (45-117); AST/SGOT 15 U/L (15-37); CHOLESTEROL/HDL RATIO 2.4; HDL CHOLESTEROL 75 mg/dl; LDL CHOLESTEROL CALCULATED 91 mg/dl
[2017-01-19 13:02] LABS: ESTIMATED AVERAGE GLUCOSE 114 mg/dl; HA1C FLAG Normal (Normal)
== END | disposition home or self-care (01) ==
LOC: C.LABBC 08:35
PROVIDERS: ATTEND Internal Medicine
DX: I10 Essential (primary) hypertension (principal); E78.5 Hyperlipidemia, unspecified; M54.5 Low back pain; M16.11 Unilateral primary osteoarthritis, right hip; R73.01 Impaired fasting glucose; G62.9 Polyneuropathy, unspecified; M10.9 Gout, unspecified

== ENCOUNTER → 2017-04-12 | Day surgery (SDC) | payer OTHER, MEDICARE ==
[2017-03-30 11:41] VITALS: Ht 180.3 cm; Wt 97.7 kg
[~2017-04-12] VITALS: Ht 180.3 cm; Wt 97.7 kg
[~2017-04-12] MED LIST changes: -ACET-24 PO; +ASPCH81X PO; -ASPEC325 PO; -ASPI400T11 PO; -CITA10TA8 PO; +CITA20TA4 PO; -GABA-113 PO; +LISI-786 PO; -LISI20TA55 PO; +LUTE15CA PO; -LUTE6CAP9 PO; +PROPOFOL IV EMULSION 10 MG/ML 20 ML VIAL IV ONE; +SODIUM CHLORIDE 0.9% 500ML 500 ML IV ONE; +TAMS0.4C38 PO; -TAMS0.4C59 PO; -ULT50X PO
[2017-04-12 12:10] VITALS: TEMP 36.4
--- NOTE | 2017-04-12 12:51 | Endo History and Physical ---
History & Physical Date of Service: Apr 12, 2017. Chief Complaint: HX OF POLYPS Referring Physician: DR. Yuli BUNDY History of Present Illness 81 yo CM who presents for colonoscopy secondary to history of colon polyps. Past Medical History Anxiety, Hypertension Past Surgical History Hx Cardiac Surgery: No Hx Internal Defibrillator: No Hx Pacemaker: No Hx Abdominal Surgery: Yes ([place], RT HERNIA REPAIR) Hx of Implantable Prosthesis: No Hx Post-Op Nausea and Vomiting: No Hx Cancer Surgery: No Hx Thoracic Surgery: No Hx Orthopedic: Yes (LUMBAR LAMINECTOMY, LUMBAR DISCECTOMY) Hx Urinary Tract Surgery: Yes (RT HEATH) Family History None Social History Smoking Status: Former Smoker Hx Substance Use: No Hx Alcohol Use: Yes (2 GLASSES OF WINE DAILY) Allergies Coded Allergies: No Known Allergies (Verified , 03/30/17) Current Medications Reported Home Medications Medications Dose Route/Sig Max Daily Dose Days Date Category Lutein (Lutein-Zeaxanthin) 1 Cap Cap 1 Cap PO QAM 03/30/17 Reported Proscar (Finasteride) 5 Mg Tab 5 Mg PO QAM 03/30/17 Reported Flomax (Tamsulosin Hcl) 0.4 Mg Cap 0.4 Mg PO HS 03/30/17 Reported Zestoretic (Lisinopril & Hydrochlorothiazi) 1 Tab Tab 1 Tab PO QAM 03/30/17 Reported Zyrtec (Cetirizine Hcl) 10 Mg Tab 10 Mg PO QAM 03/30/17 Reported [place]-3 (Fish Oil) 1 Ea Cap 1 Cap PO QAM 03/30/17 Reported Multivitamin (Multivitamins) Tab 1 Tab PO QAM 03/30/17 Reported Citalopram Hydrobromide 20 Mg Tab 1 Tab PO QAM 03/30/17 Reported Aspirin Chewable (Aspirin) 81 Mg Chew 81 Mg PO QAM 03/30/17 Reported Cardizem Cd (Diltiazem Hcl Coated Beads) 240 Mg Cap 240 Mg PO QAM 01/08/12 Reported Vital Signs Weight (Kilograms): 97.73 Height (Feet): 5 Height (Inches): 11 Date Time Temp Pulse Resp B/P (MAP) Pulse Ox O2 Delivery O2 Flow Rate FiO2 04/12/17 12:10 36.4 86 20 181/95 (123) 95 Room Air Physical Exam General Appearance: WD/WN, no apparent distress Respiratory/Chest: Auscultation: breath sounds normal Cardiovascular: Heart Auscultation: RRR Abdomen: Bowel Sounds: normal Inspection & Palpation: soft, non-distended, no tenderness, guarding & rebound Assessment and Plan Assessment: 81 yo CM who presents for colonoscopy secondary to history of colon polyps. Plan: Proceed with colonoscopy.
--- NOTE | 2017-04-12 13:35 | Discharge Instructions ---
Endoscopy Patient Instructions Date / Procedure(s) Performed Apr 12, 2017. Colonoscopy Allergy Information Coded Allergies: No Known Allergies (Verified , 03/30/17) Discharge Date / Findings Apr 12, 2017. Colon polyp Internal hemorrhoids Medication Instructions Stopped Medication(s): ASPIRIN STOPPED 04/02/17 OK to resume all medications today as prescribed Reported Home Medications Medications Dose Route/Sig Max Daily Dose Days Date Category Lutein (Lutein-Zeaxanthin) 1 Cap Cap 1 Cap PO QAM 03/30/17 Reported Proscar (Finasteride) 5 Mg Tab 5 Mg PO QAM 03/30/17 Reported Flomax (Tamsulosin Hcl) 0.4 Mg Cap 0.4 Mg PO HS 03/30/17 Reported Zestoretic (Lisinopril & Hydrochlorothiazi) 1 Tab Tab 1 Tab PO QAM 03/30/17 Reported Zyrtec (Cetirizine Hcl) 10 Mg Tab 10 Mg PO QAM 03/30/17 Reported [place]-3 (Fish Oil) 1 Ea Cap 1 Cap PO QAM 03/30/17 Reported Multivitamin (Multivitamins) Tab 1 Tab PO QAM 03/30/17 Reported Citalopram Hydrobromide 20 Mg Tab 1 Tab PO QAM 03/30/17 Reported Aspirin Chewable (Aspirin) 81 Mg Chew 81 Mg PO QAM 03/30/17 Reported Cardizem Cd (Diltiazem Hcl Coated Beads) 240 Mg Cap 240 Mg PO QAM 01/08/12 Reported Provider Instructions Activity Restrictions - No exercising or heavy lifting for 24 hours. - Do not drink alcohol the day of the procedure. - Do not drive a car or operate machinery until the day after the procedure. - Do not make any important decisions or sign important papers in 24 hours after the procedure. Following Day: - Return to full activity which may include returning to work/school. Diet Start your diet with liquids and light foods (jello, soup, juice, toast). Then eat your usual diet if not nauseated. Treatment For Common After Affects For mild abdominal pain, bloating, or excessive gas: - Rest - Eat lightly - Lie on right side Follow-Up Information Follow-up with DR. Yuli BUNDY as scheduled Anesthesia Information What You Should Know You have had a procedure that required some medicine to reduce anxiety and discomfort. This treatment is called moderate sedation. After receiving the treatment, you may be sleepy, but you will be able to breathe on your own. The effects of the treatment may last for several hours. Follow these instructions along with Activity/Diet recommendations noted above: * Do NOT do anything where dizziness or clumsiness would be dangerous. * Rest quietly at home today, then you can be up and about tomorrow. * Have a responsible person stay with you the rest of today. * You may have had an I.V. today. If so, you may take the dressing off later today. Recommendations Call your doctor if: * Trouble breathing * Continuous vomiting for more than 24 hours * Temperature above 101 degrees * Severe abdominal pain or bloating * Pain not relieved by pain medicine ordered * There is increased drainage or redness from any incision * A large amount of rectal bleeding greater than 2-3 tablespoons. (If you had a polyp/s removed or have hemorrhoids, a small amount of blood - from the rectum is to be expected.) * You have any unanswered questions or concerns. IN THE EVENT OF A SERIOUS EMERGENCY, GO TO THE NEAREST EMERGENCY ROOM Your discharge instructions were prepared by provider Irving Ashley. Patient Instructions Signature Page [facility] Patient (or Guardian) Signature/Date: I have read and understand the instructions given to me by my caregivers. Caregiver/RN/Doctor Signature/Date: The above-named patient and/or guardian has received patient instructions on this date. + Original Patient Signature Page (only) stays with chart. Please make copy for patient.
--- NOTE | 2017-04-12 13:41 | GI REPORT ---
Procedure Date: 04/12/2017 12:49 PM Procedure: Colonoscopy Indications: High risk colon cancer surveillance: Personal history of colonic polyps Medicines: Monitored Anesthesia Care Complications: No immediate complications. Estimated Blood Loss: Estimated blood loss: none. Procedure: Pre-Anesthesia Assessment: - Prior to the procedure, a History and Physical was performed, and patient medications and allergies were reviewed. The patient's tolerance of previous anesthesia was also reviewed. The risks and benefits of the procedure and the sedation options and risks were discussed with the patient. All questions were answered, and informed consent was obtained. Prior Anticoagulants: The patient has taken aspirin, last dose was 10 days prior to procedure. ASA Grade Assessment: III - A patient with severe systemic disease. After reviewing the risks and benefits, the patient was deemed in satisfactory condition to undergo the procedure. After I obtained informed consent, the scope was passed under direct vision. Throughout the procedure, the patient's blood pressure, pulse, and oxygen saturations were monitored continuously. The scope was introduced through the anus and advanced to the terminal ileum. The colonoscopy was performed without difficulty. The patient tolerated the procedure well. The quality of the bowel preparation was good. The terminal ileum, ileocecal valve, appendiceal orifice, and rectum were photographed. Findings: The perianal and digital rectal examinations were normal. A 6 mm polyp was found in the sigmoid colon. The polyp was sessile. The polyp was removed with a hot snare. Resection and retrieval were complete. Non-bleeding internal hemorrhoids were found during retroflexion. The hemorrhoids were small. Impression: - One 6 mm polyp in the sigmoid colon, removed with a hot snare. Resected and retrieved. - Non-bleeding internal hemorrhoids. Recommendation: - Resume previous diet. - Continue present medications. - Repeat colonoscopy for surveillance based on pathology results. - Return to primary care physician as previously scheduled. Irving Landrum DO [place] 04/12/2017 1:40:38 PM This report has been signed electronically. Note Initiated On: 04/12/2017 12:49 PM I attest to the content of the Intraoperative Record and orders documented therein, exceptions below
[2017-04-12 13:49] VITALS: BP 161/91; PULSE 76; O2SAT 96
--- NOTE | 2017-04-12 15:28 | Anesthesiology Progress Note ---
Anesthesia Post Op Note Date & Time Apr 12, 2017 at 15:28 Vital Signs Pain Intensity: 0 Vital Signs Past 12 Hours Date Time Temp Pulse Resp B/P (MAP) Pulse Ox O2 Delivery O2 Flow Rate FiO2 04/12/17 13:49 76 18 161/91 (114) 96 Room Air 04/12/17 13:34 81 18 141/94 (110) 97 Room Air 04/12/17 13:19 75 16 131/88 (102) 96 Room Air 04/12/17 12:10 36.4 86 20 181/95 (123) 95 Room Air Notes Mental Status: alert / awake / arousable, participated in evaluation Pt Amnestic to Procedure: Yes Nausea / Vomiting: adequately controlled Pain: adequately controlled Airway Patency, RR, SpO2: stable & adequate BP & HR: stable & adequate Hydration State: stable & adequate Anesthetic Complications: no major complications apparent
== END | disposition home or self-care (01) ==
LOC: C.GI 11:43
PROVIDERS: ATTEND Internal Medicine
DX: Z12.11 Encounter for screening for malignant neoplasm of colon (principal); D12.5 Benign neoplasm of sigmoid colon; K64.8 Other hemorrhoids; Z86.010 Personal history of colon polyps; F41.9 Anxiety disorder, unspecified; I10 Essential (primary) hypertension; Z87.891 Personal history of nicotine dependence; Z79.899 Other long term (current) drug therapy; Z79.82 Long term (current) use of aspirin